=== PATIENT | female | born 1965 | race Caucasian/White ===

== ENCOUNTER 2017-08-04 18:48 | Emergency (ER) | payer SELFPAY ==
[~2017-08-04] VITALS: Ht 157.5 cm; Wt 86.4 kg
[2017-08-04 19:00] VITALS: BP 133/71
--- NOTE | 2017-08-04 19:53 | NUR ---
PATIENT AMBULATED TO CHAIR E.
--- NOTE | 2017-08-04 19:55 | NUR ---
51/F CAME IN W C/O 11/11 BURNING MIDSTERAL CHEST PAIN RADIATING UPTO THROAT SINCE NOON TODAY. PT REPORTS N/V X1, DENIES SOB/COUGH, DENIES FEVER/CHILLS, SKIN IS WARM AND DRY. NO RESPIRATORY DISTRESS NOTED AT THIS TIME, ALL LUNG SOUNDS CBTA, 16RR EVEN AND UNLABORED. BS ACTIVE X 4, ABD SOFT ROUND, +TENDERNESS TO RUQ. PMH: GASTRITIS, RX: OMEPRAZOLE
[2017-08-04] MEDS ORDERED: FAMOTIDINE 20 MG TAB PO ONE (21:25)
[2017-08-04] MEDS ORDERED: KETOROLAC 30 MG/ML VIAL IM ONE (21:25)
--- NOTE | 2017-08-04 21:55 | NUR ---
Patient discharged with v/s stable. Written and verbal after care instructions given and explained. Patient alert, oriented and verbalized understanding of instructions. Ambulatory with steady gait. All questions addressed prior to discharge. ID band removed. Patient advised to follow up with PMD. Rx of ATIVAN, PEPCID, NAPROXEN given. Patient educated on indication of medication including possible reaction and side effects. Opportunity to ask questions provided and answered.
[2017-08-04 21:58] VITALS: BP 134/69
== END 2017-08-04 21:55 | disposition home or self-care (01) ==
LOC: MED 18:48
DX: R07.89 Other chest pain (principal)
CPT/HCPCS: 81002; 81025; 93005; 96372; 99283; J1885